=== PATIENT | female | born 1990 | race Asian ===

== ENCOUNTER 2019-08-19 15:28 | Emergency (ER) | payer OTHER ==
[~2019-08-19] VITALS: Ht 162.6 cm; Wt 50.3 kg
[2019-08-19 15:37] VITALS: Ht 162.6 cm; Wt 50.3 kg
[2019-08-19 17:49] LABS: BASOPHIL % 0.2 % (0-2); PLATELET COUNT 198 x10^3mcL (130-400); RED CELL DISTRIBUTION WIDTH 13.7 % (11.5-14.5)
[2019-08-19 18:14] LABS: CALCIUM 8.8 mg/dL (8.5-10.1); CARBON DIOXIDE 28.5 mmol/L (21-32); CHLORIDE SERUM 104 mmol/L (98-107); CREATININE SERUM 0.6 mg/dL (0.6-1.0); GFR1 > 60 mL/min; GLUCOSE SERUM 89 mg/dL (74-106); POTASSIUM SERUM 3.9 mmol/L (3.5-5.1); SODIUM SERUM 141 mmol/L (136-145)
[2019-08-19 18:19] LABS: ALBUMIN 3.9 g/dL (3.4-5.0); ALKALINE PHOSPHATASE 44 U/L (46-116); ALT/SGPT 18 U/L (14-59); AMYLASE 56 U/L (25-115); AST/SGOT 18 U/L (15-37); BILIRUBIN TOTAL 0.45 mg/dL (0.20-1.00); LIPASE 65 IU/L (73-393); TOTAL PROTEIN, SERUM 7.7 g/dL (6.4-8.2)
[2019-08-19 20:06] VITALS: BP 101/58
== END 2019-08-19 20:06 | disposition home or self-care (01) ==
LOC: ED 15:28
PROVIDERS: Specialist
DX: R10.32 Left lower quadrant pain (principal); R50.9 Fever, unspecified
CPT/HCPCS: 87491; 87591; J1885; J7030